=== PATIENT | male | born 1950 | race Caucasian/White ===

== ENCOUNTER 2019-05-01 01:02 | Day surgery (SDC) | payer OTHER, SELFPAY ==
[2019-04-30 10:17] VITALS: BMI 25.8
[2019-05-01 09:31] VITALS: BP 153/82; PULSE 55; RESP 16; TEMP 36.4; O2SAT 97; BMI 26.0
[2019-05-01] MEDS: LACTATED RINGERS 1,000 ML 150 ML IV CONT (10:24)
[2019-05-01] MEDS: AMPICILLIN 2 GM/NS 100 ML 2 GM/100 ML BAG IVPB (10:24)
--- NOTE | 2019-05-01 10:35 | P.HP_ITS ---
History of Present Illness History of Present Illness Consent: Risks, benefits, and alternatives have been discussed and questions answered. Patient agrees to proceed with procedure. Chief complaint: Personal Hx Of Colon Polyps Narrative: Max Mancera is a 68 year old male with a history of multiple polyps. Many years ago he had a resection of part of his colon for a flat polyp. [facility] Social History Social History Smoking status: Former smoker Alcohol intake: current Gender identity (if verbalized by the patient): Male Meds Home Medications and Allergies Home Medications Medication Instructions Recorded Confirmed Type gabapentin 300 mg capsule 300 mg PO BID #180 cap 03/03/19 04/30/19 Rx lorazepam 0.5 mg tablet 0.5 mg PO BID PRN #90 tablet 03/16/19 04/30/19 Rx aspirin 81 mg tablet,delayed 81 mg PO DAILY 03/27/19 05/01/19 History release famotidine 20 mg tablet 20 mg PO DAILY 03/27/19 04/30/19 History hydrocodone 10 mg-acetaminophen 1 tablet PO Q6H PRN 03/27/19 04/30/19 History 325 mg tablet pindolol 5 mg tablet 5 mg PO DAILY PRN 03/27/19 04/30/19 History pravastatin 40 mg tablet 40 mg PO DAILY 03/27/19 04/30/19 History magnesium 500 mg PO DAILY 04/30/19 04/30/19 History Allergies Allergy/AdvReac Type Severity Reaction Status Date / Time simvastatin Allergy Unknown Skin Verified 05/01/19 10:03 Reaction Vital Signs Vital Signs - 24 hr 05/01/19 09:31 Temperature 36.4 C L Pulse Rate 55 L Respiratory Rate 16 Blood Pressure 153/82 H Pulse Oximetry 97 Exam Resp: Auscultation: clear to auscultation bilaterally Cardio: Rate: regular rate Rhythm: regular rhythm GI: GI Palp: Yes Soft to palpation and No Tenderness to palpation present (GI) Assessment and Plan Assessment and plan (1) Personal history of colonic polyps: Code(s): Z86.010 - Personal history of colonic polyps Status: Acute Assessment and Plan: Colonoscopy with possible biopsy or polypectomy or cautery or injection of substances.
--- NOTE | 2019-05-01 10:43 | P.PNAN_ITS ---
Anes - Initial Pre Proc Eval Procedure: Operation Date: 05/01/19 11:00 Proposed Procedures p Screening Colonoscopy - Cisco Colindres MD Date/Time: 05/01/19 10:43 Surgeon: Cisco Colindres MD Pre Op Diagnosis: Personal Hx Of Colon Polyps Patient Data Age: 68 Gender: M Height: 5 ft 8 in Weight: 77.8 kg Last Vital Signs Temp 97.5 F L 05/01/19 09:31 Pulse 55 L 05/01/19 09:31 Resp 16 05/01/19 09:31 BP 153/82 H 05/01/19 09:31 Pulse Ox 97 05/01/19 09:31 Allergies Allergy/AdvReac Type Severity Reaction Status Date / Time simvastatin Allergy Unknown Skin Verified 05/01/19 10:03 Reaction Home Medications Medication Instructions Recorded Confirmed Type gabapentin 300 mg capsule 300 mg PO BID #180 cap 03/03/19 04/30/19 Rx lorazepam 0.5 mg tablet 0.5 mg PO BID PRN #90 tablet 03/16/19 04/30/19 Rx aspirin 81 mg tablet,delayed 81 mg PO DAILY 03/27/19 05/01/19 History release famotidine 20 mg tablet 20 mg PO DAILY 03/27/19 04/30/19 History hydrocodone 10 mg-acetaminophen 1 tablet PO Q6H PRN 03/27/19 04/30/19 History 325 mg tablet pindolol 5 mg tablet 5 mg PO DAILY PRN 03/27/19 04/30/19 History pravastatin 40 mg tablet 40 mg PO DAILY 03/27/19 04/30/19 History magnesium 500 mg PO DAILY 04/30/19 04/30/19 History Patient hx anesthesia problems: none Family hx anesthesia problems: none [facility] Past Medical History Medical History (Updated 05/01/19 @ 10:43 by Jasvir Solano MD) Essential (primary) hypertension Hx of sinus bradycardia Supraventricular tachycardia Social History Social History Smoking status: Former smoker Alcohol intake: current Gender identity (if verbalized by the patient): Male Anes - Eval Final PreProcedure Day of Procedure 05/01/19 10:43 Patient weight: normal Heart: regular rate and rhythm Lungs: clear to auscultation Airway: Mallampati scale class II Neurological: alert and oriented Last oral intake: >/= 8 hours ASA classification: III Emergent: no Anesthetic plan: proceed Anesthesia type and monitoring: general GIVS and standard monitoring Informed Consent: The patient's anesthetic plan and its attendant risks and be nefits were discussed with the patient/family/POA. Questions were solicited and answers provided to the satisfaction of the patient/family/POA.
--- NOTE | 2019-05-01 10:43 | PC.NURSE ---
CHARTED IN ERROR
[2019-05-01 11:38] VITALS: BP 111/56; PULSE 59; RESP 22; O2SAT 99
--- NOTE | 2019-05-01 11:42 | SUR.OPER ---
Two sigmoid polyps- one hot snared and was not obtained- MD aware.
[2019-05-01 11:48] VITALS: BP 120/60; PULSE 51; RESP 18; O2SAT 99
[2019-05-01 11:58] VITALS: BP 136/59; PULSE 52; RESP 14; O2SAT 99
== END 2019-05-01 12:19 | disposition home or self-care (01) ==
PROVIDERS: PCP Family Medicine; Visit Provider Internal Medicine Gastroenterology
PROC: 0DJD8ZZ Inspection of Lower Intestinal Tract, Via Natural or Artificial Opening Endoscopic (ICD-10-PCS; CPT 45378; principal; 2019-05-01 11:00)
DX: Z12.11 Encounter for screening for malignant neoplasm of colon (principal); D12.3 Benign neoplasm of transverse colon; D12.5 Benign neoplasm of sigmoid colon; Z98.0 Intestinal bypass and anastomosis status; I10 Essential (primary) hypertension; Z79.82 Long term (current) use of aspirin; Z87.891 Personal history of nicotine dependence
CPT/HCPCS: 45385; 45380; 88305; J0290; J2704; J7120

== ENCOUNTER 2020-02-16 11:52 | Outpatient (CLI) | payer OTHER, SELFPAY ==
[2020-02-16 12:39] LABS: Hemoglobin A1C 5.3 % (<5.7)
== END 2020-02-16 11:53 | disposition home or self-care (01) ==
LOC: ANHLAB 11:52
PROVIDERS: PCP Family Medicine; Visit Provider Family Medicine
DX: Z13.1 Encounter for screening for diabetes mellitus (principal)
CPT/HCPCS: 36415; 83036

== ENCOUNTER 2021-02-02 11:05 | Outpatient (CLI) | payer MEDICARE, SELFPAY ==
[2021-02-02 12:26] LABS: Basophils Absolute Auto 0.1 K/mm3 (0.0-0.1); Basophils Percent Auto 1.2 % (0.2-1.2); Eosinophils Absolute Auto 0.4 K/mm3 (0-0.3); Eosinophils Percent Auto 7.6 % (0-4.4); Hematocrit 39.2 % (42.0-52.0); Hemoglobin 12.8 g/dL (14.0-18.0); Immature Granulocyte Absolute 0.01 K/mm3 (0.00-0.031); Immature Granulocyte Percent A 0.2 % (0-0.5); Lymphocytes Absolute Auto 1.52 K/mm3 (0.9-3.2); Lymphocytes Percent Auto 26.4 % (18.3-44.2); Mean Corpuscular HGB Conc 32.7 g/dl (32-36); Mean Corpuscular Hemoglobin 29.8 pg (26-34); Mean Corpuscular Volume 91.4 fl (80-100); Mean Platelet Volume 9.2 fl (7.4-10.4); Monocytes Absolute Auto 0.5 K/mm3 (0.1-0.6); Monocytes Percent Auto 8.9 % (2.6-8.5); Neutrophils Absolute Auto 3.2 K/mm3 (1.3-6.7); Neutrophils Percent Auto 55.7 % (45.5-73.1); Platelet Count Result 230 k/mm3 (150-375); Red Blood Count 4.29 M/mm3 (4.6-6.20); Red Cell Distribution Width 12.9 % (11.5-14.5); White Blood Count 5.8 K/mm3 (4.5-10.0)
[2021-02-02 12:31] LABS: Alanine Aminotransferase 18 U/L (4-50); Albumin Level 4.2 g/dL (3.5-5.1); Alkaline Phosphatase 57 U/L (38-126); Anion Gap 3 mmol/L (8-16); Aspartate Amino Transferase 29 U/L (17-59); Bilirubin,Total 0.5 mg/dL (0.2-1.3); Blood Urea Nitrogen 16 mg/dL (9-20); Calcium 9.3 mg/dL (8.4-10.2); Carbon Dioxide 30 mmol/L (22-30); Chloride 106 mmol/L (98-107); Cholesterol 154 mg/dL (0-200); Estimated Glomerular Filt Rate > 60; Glucose 86 mg/dL (65-110); HDL Direct 51 mg/dL; Potassium 3.9 mmol/L (3.4-5.0); Sodium 139 mmol/L (137-145); Triglycerides 98 mg/dL (<150)
[2021-02-02 12:43] LABS: LDL Cholesterol Direct 80 mg/dL
[2021-02-02 13:00] LABS: Prostate Specific Antigen 3.1 ng/mL (< OR = 4.0)
[2021-02-02 13:07] LABS: Hemoglobin A1C 5.5 % (<5.7)
[2021-02-02 13:21] LABS: Free T4 Free Thyroxine 1.07 ng/mL (0.78-2.19)
== END 2021-02-02 11:06 | disposition home or self-care (01) ==
PROVIDERS: PCP Family Medicine; Visit Provider Family Medicine
DX: E11.9 Type 2 diabetes mellitus without complications (principal); R60.9 Edema, unspecified; I10 Essential (primary) hypertension; G89.4 Chronic pain syndrome; E78.2 Mixed hyperlipidemia; Z79.899 Other long term (current) drug therapy; Z12.5 Encounter for screening for malignant neoplasm of prostate
CPT/HCPCS: 36415; 80053; 80061; 83036; 84153; 84439; 84443; 85025; G0103

== ENCOUNTER 2021-05-10 09:39 | Outpatient (CLI) | payer MEDICARE, SELFPAY ==
[2021-05-10 10:12] LABS: Basophils Percent Auto 0.6 % (0.2-1.2); Eosinophils Absolute Auto 0.3 K/mm3 (0-0.3); Hematocrit 39.5 % (42.0-52.0); Hemoglobin 12.7 g/dL (14.0-18.0); Immature Granulocyte Absolute 0.02 K/mm3 (0.00-0.031); Immature Granulocyte Percent A 0.3 % (0-0.5); Lymphocytes Absolute Auto 1.41 K/mm3 (0.9-3.2); Lymphocytes Percent Auto 20.1 % (18.3-44.2); Mean Corpuscular HGB Conc 32.2 g/dl (32-36); Mean Corpuscular Hemoglobin 30.1 pg (26-34); Mean Corpuscular Volume 93.6 fl (80-100); Mean Platelet Volume 9.2 fl (7.4-10.4); Monocytes Absolute Auto 0.6 K/mm3 (0.1-0.6); Neutrophils Absolute Auto 4.7 K/mm3 (1.3-6.7); Platelet Count Result 194 k/mm3 (150-375); Red Blood Count 4.22 M/mm3 (4.6-6.20)
== END 2021-05-10 09:40 | disposition home or self-care (01) ==
LOC: ANHLAB 09:41
PROVIDERS: PCP Family Medicine; Visit Provider Physician Assistant
DX: D64.9 Anemia, unspecified (principal)
CPT/HCPCS: 36415; 85025

== ENCOUNTER 2021-09-21 13:57 | Outpatient (CLI) | payer MEDICARE, SELFPAY ==
[2021-09-21 18:59] LABS: Basophils Absolute Auto 0.1 K/mm3 (0.0-0.1); Eosinophils Absolute Auto 0.1 K/mm3 (0-0.3); Eosinophils Percent Auto 2.2 % (0-4.4); Hematocrit 39.1 % (42.0-52.0); Hemoglobin 12.8 g/dL (14.0-18.0); Immature Granulocyte Absolute 0.01 K/mm3 (0.00-0.031); Immature Granulocyte Percent A 0.2 % (0-0.5); Lymphocytes Absolute Auto 1.66 K/mm3 (0.9-3.2); Lymphocytes Percent Auto 28.3 % (18.3-44.2); Mean Corpuscular HGB Conc 32.7 g/dl (32-36); Mean Corpuscular Volume 91.8 fl (80-100); Mean Platelet Volume 8.9 fl (7.4-10.4); Monocytes Absolute Auto 0.5 K/mm3 (0.1-0.6); Monocytes Percent Auto 8.4 % (2.6-8.5); Neutrophils Absolute Auto 3.5 K/mm3 (1.3-6.7); Neutrophils Percent Auto 59.9 % (45.5-73.1); Platelet Count Result 243 k/mm3 (150-375); Red Blood Count 4.26 M/mm3 (4.6-6.20); Red Cell Distribution Width 13.1 % (11.5-14.5); White Blood Count 5.9 K/mm3 (4.5-10.0)
[2021-09-21 19:43] LABS: Alanine Aminotransferase 19 U/L (6-50); Albumin Level 3.9 g/dL (3.5-5.1); Alkaline Phosphatase 52 U/L (38-126); Anion Gap 7 mmol/L (8-16); Aspartate Amino Transferase 32 U/L (17-59); Bilirubin,Total 0.8 mg/dL (0.2-1.3); Blood Urea Nitrogen 16 mg/dL (9-20); Calcium 9.2 mg/dL (8.4-10.2); Carbon Dioxide 27 mmol/L (22-30); Chloride 103 mmol/L (98-107); Estimated Glomerular Filt Rate > 60; Glucose 100 mg/dL (65-110); Sodium 137 mmol/L (137-145)
[2021-09-21 19:45] LABS: Iron 146 ug/dL (49-181)
[2021-09-21 19:53] LABS: Percent Iron Saturation 45 % (20-50)
== END 2021-09-21 13:58 | disposition home or self-care (01) ==
PROVIDERS: PCP Emergency Medicine; Visit Provider Physician Assistant
DX: D64.9 Anemia, unspecified (principal)
CPT/HCPCS: 36415; 80053; 82607; 82728; 82746; 83540; 83550; 85025

== ENCOUNTER 2021-09-26 15:52 | Outpatient (NON) | payer MEDICARE, SELFPAY ==
[2021-09-26 19:31] LABS: IFOB Positive Control Positive; Immunochemical Fecal Occult Bl Positive (N)
== END 2021-09-26 15:53 | disposition home or self-care (01) ==
PROVIDERS: PCP Emergency Medicine; Visit Provider Physician Assistant
DX: Z12.11 Encounter for screening for malignant neoplasm of colon (principal)
CPT/HCPCS: 82274

== ENCOUNTER 2021-10-27 12:44 | Outpatient (CLI) | payer MEDICARE, SELFPAY ==
[2021-10-27 13:30] LABS: Basophils Percent Auto 0.2 % (0.2-1.2); Eosinophils Percent Auto 0.1 % (0-4.4); Hematocrit 39.7 % (42.0-52.0); Hemoglobin 12.9 g/dL (14.0-18.0); Immature Granulocyte Absolute 0.07 K/mm3 (0.00-0.031); Immature Granulocyte Percent A 0.8 % (0-0.5); Lymphocytes Percent Auto 12.2 % (18.3-44.2); Mean Corpuscular HGB Conc 32.5 g/dl (32-36); Mean Corpuscular Hemoglobin 29.9 pg (26-34); Mean Corpuscular Volume 91.9 fl (80-100); Monocytes Absolute Auto 0.6 K/mm3 (0.1-0.6); Monocytes Percent Auto 6.2 % (2.6-8.5); Neutrophils Absolute Auto 7.2 K/mm3 (1.3-6.7); Neutrophils Percent Auto 80.5 % (45.5-73.1); Platelet Count Result 239 k/mm3 (150-375); Red Blood Count 4.32 M/mm3 (4.6-6.20); Red Cell Distribution Width 13.2 % (11.5-14.5)
[2021-10-27 14:28] LABS: Alanine Aminotransferase 21 U/L (6-50); Albumin Level 4.1 g/dL (3.5-5.1); Alkaline Phosphatase 53 U/L (38-126); Anion Gap 9 mmol/L (8-16); Aspartate Amino Transferase 28 U/L (17-59); Bilirubin,Total 0.6 mg/dL (0.2-1.3); Blood Urea Nitrogen 20 mg/dL (9-20); Calcium 9.6 mg/dL (8.4-10.2); Carbon Dioxide 24 mmol/L (22-30); Chloride 106 mmol/L (98-107); Cholesterol 184 mg/dL (0-200); Estimated Glomerular Filt Rate > 60; Glucose 128 mg/dL (65-110); HDL Direct 59 mg/dL; Sodium 139 mmol/L (137-145); Triglycerides 107 mg/dL (<150)
[2021-10-27 14:39] LABS: LDL Cholesterol Direct 92 mg/dL
== END 2021-10-27 12:45 | disposition home or self-care (01) ==
PROVIDERS: PCP Emergency Medicine; Visit Provider Physician Assistant
DX: E53.8 Deficiency of other specified B group vitamins (principal); D64.9 Anemia, unspecified; I10 Essential (primary) hypertension; R73.03 Prediabetes; E78.2 Mixed hyperlipidemia
CPT/HCPCS: 36415; 80053; 80061; 82607; 84443; 85025

== ENCOUNTER 2021-11-01 12:20 | Day surgery (SDC) | payer MEDICARE, SELFPAY ==
[2021-10-17 14:18] VITALS: BMI 28.1
[2021-10-19 10:02] VITALS: BMI 27.3
--- NOTE | 2021-10-31 07:44 | PM.HPGS ---
History of Present Illness History of Present Illness Consent: Risks, benefits, and alternatives have been discussed and questions answered. Patient agrees to proceed with procedure. Chief complaint: Occult GI Bleed, Anemia and History of Polyp Narrative: Max Mancera is a 71 year old male referred for investigation of anemia. His Hbg has been 12.7 -12.9 for the past year. Denies blood in stool. He had 3 polyps removed about 5 years ago. Stool was + for occult blood. Review of Systems Review of Systems: All systems reviewed & are unremarkable except as noted in HPI and below PMFSH Past Medical History Medical History Carpal tunnel syndrome, bilateral Essential (primary) hypertension Hx of sinus bradycardia Supraventricular tachycardia Vocal cord nodule Surgical History Surgical History H/O foot surgery right side twice H/O knee surgery 3x right knee 1x left History of carpal tunnel surgery History of colon resection History of throat surgery vocal cord stripping Hx of shoulder surgery left S/P tonsillectomy and adenoidectomy Social History Social History Smoking status: Never smoker Tobacco type: cigarettes Additional smoking assessment comments: quit 20 plus years ago. Alcohol intake: current Substance use: never Living arrangements: with family Gender identity (if verbalized by the patient): Male Spiritual care concerns: No Meds Home Medications and Allergies Home Medications Medication Instructions Recorded Confirmed Type aspirin 81 mg tablet,delayed 81 mg PO DAILY 03/27/19 11/01/21 History release hydrocodone 10 mg-acetaminophen 1 tablet PO Q4H PRN Pain 03/27/19 11/01/21 History 325 mg tablet ([place]) pindolol 5 mg tablet 5 mg PO DAILY 03/27/19 11/01/21 History buprenorphine HCl 150 mcg buccal 150 mcg buccal DAILY 07/06/20 11/01/21 History film ([place]) losartan 25 mg tablet See Rx Instructions .Route 04/10/21 11/01/21 Rx .COMPLEX #30 tabs lorazepam 1 mg tablet 0.5 mg PO BID #30 tabs 07/07/21 11/01/21 Rx ferrous sulfate 325 mg (65 mg 325 mg PO BID 09/22/21 10/19/21 History iron) tablet mecobalamin (vitamin B12) 1,000 1,000 mcg PO DAILY 09/22/21 11/01/21 History mcg chewable tablet gabapentin 300 mg capsule 300 mg PO BID 10/19/21 11/01/21 History pravastatin 40 mg tablet 40 mg PO DAILY 10/19/21 11/01/21 History Allergies Allergy/AdvReac Type Severity Reaction Status Date / Time simvastatin Allergy Unknown Skin Verified 11/01/21 12:47 Reaction Exam Resp: Auscultation: clear to auscultation bilaterally Cardio: Rate: regular rate Rhythm: regular rhythm GI: GI Palp: Yes Soft to palpation and No Tenderness to palpation present (GI) Assessment and Plan Assessment and plan (1) Heme positive stool: Code(s): R19.5 - Other fecal abnormalities Status: Acute Assessment and Plan: Colonoscopy with possible biopsy or polypectomy or cautery or injection of substances. (2) Anemia: Code(s): D64.9 - Anemia, unspecified Status: Acute
[2021-11-01 12:53] VITALS: BP 146/88; PULSE 52; RESP 16; TEMP 37.2; O2SAT 100; BMI 26.4
[2021-11-01] MEDS: LACTATED RINGERS 1,000 ML 150 ML IV CONT (13:06)
--- NOTE | 2021-11-01 13:28 | WPDANESEPPF ---
Anes - Initial Pre Proc Eval Procedure: Operation Date: 11/01/21 14:00 Proposed Procedures p Diagnostic Colonoscopy - Cisco Colindres MD Date/Time: 11/01/21 13:28 Surgeon: Cisco Colindres MD Pre Op Diagnosis: Occult GI Bleed, Anemia and History of Polyp Patient Data Age: 71 Gender: M Height: 1.75 m Weight: 81.4 kg Last Vital Signs Temp 37.2 C 11/01/21 12:53 Pulse 52 L 11/01/21 12:53 Resp 16 11/01/21 12:53 BP 146/88 H 11/01/21 12:53 Pulse Ox 100 11/01/21 12:53 O2 Del Method Room Air 11/01/21 12:53 Allergies Allergy/AdvReac Type Severity Reaction Status Date / Time simvastatin Allergy Unknown Skin Verified 11/01/21 12:47 Reaction Home Medications Medication Instructions Recorded Confirmed Type aspirin 81 mg tablet,delayed 81 mg PO DAILY 03/27/19 11/01/21 History release hydrocodone 10 mg-acetaminophen 1 tablet PO Q4H PRN Pain 03/27/19 11/01/21 History 325 mg tablet ([place]) pindolol 5 mg tablet 5 mg PO DAILY 03/27/19 11/01/21 History buprenorphine HCl 150 mcg buccal 150 mcg buccal DAILY 07/06/20 11/01/21 History film ([place]) losartan 25 mg tablet See Rx Instructions .Route 04/10/21 11/01/21 Rx .COMPLEX #30 tabs lorazepam 1 mg tablet 0.5 mg PO BID #30 tabs 07/07/21 11/01/21 Rx ferrous sulfate 325 mg (65 mg 325 mg PO BID 09/22/21 10/19/21 History iron) tablet mecobalamin (vitamin B12) 1,000 1,000 mcg PO DAILY 09/22/21 11/01/21 History mcg chewable tablet gabapentin 300 mg capsule 300 mg PO BID 10/19/21 11/01/21 History pravastatin 40 mg tablet 40 mg PO DAILY 10/19/21 11/01/21 History Patient hx anesthesia problems: none Family hx anesthesia problems: none Results Review: All pre-operative results and documents have been reviewed as part of the pre-operative evaluation. [facility] Past Medical History Medical History Carpal tunnel syndrome, bilateral Chronic pain syndrome Essential (primary) hypertension Hx of sinus bradycardia Mixed hyperlipidemia Supraventricular tachycardia Surgical History Surgical History H/O foot surgery right side twice H/O knee surgery 3x right knee 1x left History of carpal tunnel surgery History of colon resection History of throat surgery vocal cord stripping Hx of shoulder surgery left S/P tonsillectomy and adenoidectomy Social History Social History Smoking status: Never smoker Tobacco type: cigarettes Additional smoking assessment comments: quit 20 plus years ago. Alcohol intake: current Substance use: never Living arrangements: with family Gender identity (if verbalized by the patient): Male Spiritual care concerns: No Anes - Eval Final PreProcedure Day of Procedure 11/01/21 13:28 Patient weight: overweight Heart: regular rate and rhythm Lungs: clear to auscultation Airway: Mallampati scale class II Neurological: alert and oriented Last oral intake: >/= 8 hours ASA classification: III Emergent: no Anesthetic plan: proceed Anesthesia type and monitoring: general GIVS and standard monitoring Results Review: All pre-operative results and documents have been reviewed as part of the pre-operative evaluation. Informed Consent: The patient's anesthetic plan and its attendant risks and benefits were discussed with the patient/family/POA. Questions were solicited and answers provided to the satisfaction of the patient/family/POA.
[2021-11-01 14:12] VITALS: BP 104/58; PULSE 48; RESP 20; O2SAT 99
[2021-11-01 14:22] VITALS: BP 127/73; PULSE 51; RESP 20; O2SAT 98
[2021-11-01 14:32] VITALS: BP 136/81; PULSE 50; O2SAT 98
--- NOTE | 2021-11-01 14:39 | WPDANESPN ---
Anes - Prog Note Post-Op Date/Time: 11/01/21 14:39 Cardiovascular status: normal Respiratory status: normal Airway patency: baseline Mental status: baseline Post-Op hydration status: normal Vital Signs: Last Vital Signs Temp 37.2 C 11/01/21 12:53 Pulse 51 L 11/01/21 14:22 Resp 20 11/01/21 14:22 BP 127/73 11/01/21 14:22 Pulse Ox 98 11/01/21 14:22 O2 Del Method Room Air 11/01/21 14:22 Pain Score (VAS): 0 I/O: Intake & Output 10/31/21 11/01/21 11/01/21 23:59 07:59 15:59 Intake Total 400 Balance 400 Patient Feedback: Patient satisfied with anesthetic care.
== END 2021-11-01 14:42 | disposition home or self-care (01) ==
PROVIDERS: PCP Emergency Medicine; Visit Provider Internal Medicine Gastroenterology
PROC: 0DJD8ZZ Inspection of Lower Intestinal Tract, Via Natural or Artificial Opening Endoscopic (ICD-10-PCS; CPT 45378; principal; 2021-11-01 14:00)
DX: R19.5 Other fecal abnormalities (principal)
CPT/HCPCS: 45385

== ENCOUNTER 2021-11-01 13:00 | Outpatient (NON) | payer MEDICARE, SELFPAY | END 2021-11-01 13:01 | disposition home or self-care (01) | LOC: ANHLAB 11-02 08:27 | PROVIDERS: PCP Emergency Medicine; Visit Provider Internal Medicine Gastroenterology | DX: R19.5 Other fecal abnormalities (principal) | CPT/HCPCS: 88305 ==

== ENCOUNTER 2022-02-16 09:43 | Outpatient (CLI) | payer MEDICARE, SELFPAY ==
[2022-02-16 21:19] LABS: Add Urine Microscopic? YES; Appearance Urine Clear (Clear); Bilirubin Urine Negative (Negative); Blood Urine Trace-Intact (Negative); Color Urine Yellow (Yellow); Glucose Urine UA Negative (Negative); Ketones Urine Negative (Negative); Leukocyte Esterase Ur Negative LEU/UL (Negative); Nitrate Urine Negative (Negative); Protein Urine Negative (Negative); Urobilinogen Urine 0.2 mg/dL (<2.0); pH Urine 6.5 (5.0-9.0)
[2022-02-16 21:32] LABS: Mucus Urine Rare /lpf; Squamous Epithelial Cell Urine Rare /hpf (Few); WBC Urine 0-3 /hpf
== END 2022-02-16 09:44 | disposition home or self-care (01) ==
LOC: ANHGOSHLAB 09:45
PROVIDERS: PCP Emergency Medicine; Visit Provider Emergency Medicine
DX: R39.89 Other symptoms and signs involving the genitourinary system (principal)
CPT/HCPCS: 81001

== ENCOUNTER 2022-04-28 12:02 | Outpatient (CLI) | payer MEDICARE, SELFPAY ==
[2022-04-28 12:13] LABS: Basophils Absolute Auto 0.1 K/mm3 (0.0-0.1); Basophils Percent Auto 1.6 % (0.2-1.2); Eosinophils Absolute Auto 0.4 K/mm3 (0-0.3); Eosinophils Percent Auto 7.1 % (0-4.4); Hematocrit 38.8 % (42.0-52.0); Hemoglobin 12.7 g/dL (14.0-18.0); Immature Granulocyte Absolute 0.02 K/mm3 (0.00-0.031); Immature Granulocyte Percent A 0.4 % (0-0.5); Lymphocytes Absolute Auto 1.38 K/mm3 (0.9-3.2); Mean Corpuscular HGB Conc 32.7 g/dl (32-36); Mean Corpuscular Hemoglobin 30.8 pg (26-34); Mean Corpuscular Volume 93.9 fl (80-100); Mean Platelet Volume 8.9 fl (7.4-10.4); Monocytes Absolute Auto 0.5 K/mm3 (0.1-0.6); Monocytes Percent Auto 8.3 % (2.6-8.5); Neutrophils Absolute Auto 3.2 K/mm3 (1.3-6.7); Neutrophils Percent Auto 57.6 % (45.5-73.1); Platelet Count Result 188 k/mm3 (150-375); Red Blood Count 4.13 M/mm3 (4.6-6.20); Red Cell Distribution Width 13.1 % (11.5-14.5); White Blood Count 5.5 K/mm3 (4.5-10.0)
== END 2022-04-28 12:03 | disposition home or self-care (01) ==
PROVIDERS: PCP Emergency Medicine; Visit Provider Emergency Medicine
DX: D64.9 Anemia, unspecified (principal)
CPT/HCPCS: 36415; 85025

== ENCOUNTER 2022-11-26 14:48 | Outpatient (CLI) | payer MEDICARE, SELFPAY ==
[2022-11-26 22:18] LABS: Hemoglobin A1C 5.3 % (<5.7)
== END 2022-11-26 14:49 | disposition home or self-care (01) ==
PROVIDERS: PCP Emergency Medicine; Visit Provider Nurse Practitioner Family
DX: Z01.812 Encounter for preprocedural laboratory examination (principal); R73.01 Impaired fasting glucose
CPT/HCPCS: 36415; 83036

== ENCOUNTER 2023-01-08 12:54 | Outpatient (CLI) | payer MEDICARE, SELFPAY ==
--- NOTE | ~2023-01-08 | US_ITS ---
EXAMINATION: US carotid duplex BI DATE: 01/08/2023 14:31 INDICATION: TECHNIQUE: Grayscale, color Doppler, and pulsed Doppler images of the cervical carotid arteries were obtained. The degree of vessel stenosis is placed in one of the following categories: normal, <50%, 5 0-69%, >=70% but less than near-occlusion, near-occlusion, or total occlusion. Note that percent sten osis relative to normal distal artery lumen diameter is indirectly measured from velocity measurement s as described by Alex, et al. Radiology 2003; 229:[id number]. Notes: Normal: Peak systolic velocity <125 centimeters/sec and no plaque <50%. Peak systolic velocity <125 ( EDV <40; ICA/CCA PSV ratio <2.0; used these factors only a tandem lesions or low cardiac output or co ntralateral disease) 50-69 %: PSV 125-230 (EDV 40-100; ratio 2-4) >= 70% but less than near occlusion: PSV greater than 230 (EDV > 100; ratio> 4.0) Near Occlusion: PSV that is variable; markedly narrowed lumen Occlusion: Absent flow on color/spectral Doppler and no lumen on petit scale. COMPARISON: None. FINDINGS: RIGHT: The right common carotid artery (CCA) peak systolic velocity (PSV) is 122 cm/s. The right internal ca rotid artery (ICA) PSV is 79 cm/s. The right ICA end-diastolic velocity (EDV) is 19 cm/s. The right I CA/CCA PSV ratio is 0.6. The external carotid artery (ECA) PSV is 81 cm/s. There is antegrade flow in the right vertebral artery. LEFT: The left CCA PSV is 106 cm/s. The left ICA PSV is 87 cm/s. The left ICA EDV is 28 cm/s. The left ICA/ CCA PSV ratio is 0.8. The ECA PSV is 55 cm/s. There is antegrade flow in the left vertebral artery. IMPRESSION: 1. Less than 50% stenosis in the right internal carotid artery by sonographic criteria. 2. Less than 50% stenosis in the left internal carotid artery by sonographic criteria. Reviewed, dictated and finalized at location [facility] IMPRESSION: 1. Less than 50% stenosis in the right internal carotid artery by sonographic [place]. 2. Less than 50% stenosis in the left internal carotid artery by sonographic joseph caballero.
== END 2023-01-08 12:55 | disposition home or self-care (01) ==
PROVIDERS: PCP Emergency Medicine; Visit Provider Internal Medicine Cardiovascular Disease
DX: R09.89 Other specified symptoms and signs involving the circulatory and respiratory systems (principal); I65.23 Occlusion and stenosis of bilateral carotid arteries
CPT/HCPCS: 93880